=== PATIENT | female | born 1970 | race Caucasian/White ===

== ENCOUNTER 2017-08-06 02:46 | Emergency (ER) | payer BC ==
[~2017-08-06] VITALS: Ht 172.7 cm; Wt 72.6 kg
[~2017-08-06 02:46] MED LIST: PRILOSEC20 MG PO; TRIMOX500 MG PO; VICODIN 500 MG-1 TAB PO; VYVANSE70 MG PO
[2017-08-06 02:52] VITALS: BP 154/63
[2017-08-06] MEDS ORDERED: CYCLOBENZAPRINE10 MG PO (02:59)
[2017-08-06] MEDS ORDERED: NAPROSYN500 MG PO (02:59)
== END 2017-08-06 03:33 | disposition home or self-care (01) ==
LOC: ED 02:46
DX: M25.511 Pain in right shoulder (principal); F17.200 Nicotine dependence, unspecified, uncomplicated; Z79.899 Other long term (current) drug therapy

== ENCOUNTER 2018-01-06 23:36 | Emergency (ER) | payer BC ==
[~2018-01-06] VITALS: Ht 172.7 cm; Wt 81.6 kg
[~2018-01-06 23:36] MED LIST changes: +CYCLOBENZAPRINE10 MG PO; +NAPROSYN500 MG PO
[2018-01-07 00:09] LABS: BILIRUBIN NEGATIVE (NEGATIVE); BLOOD NEGATIVE (NEGATIVE); CLARITY CLEAR (CLEAR); COLOR YELLOW (YELLOW); GLUCOSE NEGATIVE (NEGATIVE); KETONE NEGATIVE (NEGATIVE); LEUKO ESTERASE NEGATIVE (NEGATIVE); NITRITE NEGATIVE (NEGATIVE); PH 5.5 (5.0-9.0); SPECIFIC GRAVITY <= 1.005 (1.005-1.030); UROBILINOGEN 0.2 E.U./dl (0.2-1.0)
[2018-01-07 00:21] LABS: WBC 0-2 wbc/hpf (0-5)
[2018-01-07] MEDS ORDERED: MIRALAX POWDER17 G1 PO (00:25)
[2018-01-07] MEDS ORDERED: REGLAN10 M1 PO (01:01)
[2018-01-07 01:41] VITALS: BP 130/70
== END 2018-01-07 01:52 | disposition home or self-care (01) ==
LOC: ED 23:36
PROVIDERS: Physician Assistant
DX: K59.00 Constipation, unspecified (principal); R11.0 Nausea; F17.200 Nicotine dependence, unspecified, uncomplicated; Z79.899 Other long term (current) drug therapy

== ENCOUNTER 2018-04-24 16:15 | Emergency (ER) | payer BC ==
[~2018-04-24] VITALS: Ht 172.7 cm; Wt 77.1 kg
[~2018-04-24 16:15] MED LIST changes: +MIRALAX POWDER17 G1 PO; +REGLAN10 M1 PO
[2018-04-24 16:17] VITALS: BP 127/51
[2018-04-24] MEDS ORDERED: ROBAXIN500 M1 PO (16:30)
[2018-04-24] MEDS ORDERED: PREDNISONE10 MG PO (16:30)
== END 2018-04-24 17:53 | disposition home or self-care (01) ==
LOC: ED 16:15
DX: M54.12 Radiculopathy, cervical region (principal); F17.200 Nicotine dependence, unspecified, uncomplicated; Z79.899 Other long term (current) drug therapy

== ENCOUNTER 2018-10-10 01:04 | Emergency (ER) | payer BC ==
[~2018-10-10] VITALS: Ht 172.7 cm; Wt 77.1 kg
[2018-10-10 01:04] VITALS: BP 104/33
[~2018-10-10 01:04] MED LIST changes: +PREDNISONE10 MG PO; +ROBAXIN500 M1 PO
== END 2018-10-10 03:01 | disposition home or self-care (01) ==
LOC: ED 01:04
DX: S90.32XA Contusion of left foot, initial encounter (principal); Z79.899 Other long term (current) drug therapy; W22.8XXA Striking against or struck by other objects, initial encounter; Y93.89 Activity, other specified; Y92.89 Other specified places as the place of occurrence of the external cause; Y99.8 Other external cause status

== ENCOUNTER 2019-03-02 11:28 | Emergency (ER) | payer BC ==
[~2019-03-02] VITALS: Ht 172.7 cm; Wt 72.6 kg
[2019-03-02 12:56] VITALS: BP 95/58
== END 2019-03-02 14:03 | disposition home or self-care (01) ==
LOC: ED 11:28
DX: S63.501A Unspecified sprain of right wrist, initial encounter (principal); Z79.899 Other long term (current) drug therapy; W22.8XXA Striking against or struck by other objects, initial encounter; X50.0XXA Overexertion from strenuous movement or load, initial encounter; Y93.89 Activity, other specified; Y92.89 Other specified places as the place of occurrence of the external cause; Y99.8 Other external cause status

== ENCOUNTER → 2020-01-26 | Outpatient (CLI) | payer BC | END | disposition home or self-care (01) | LOC: US 08:30 | DX: N93.9 Abnormal uterine and vaginal bleeding, unspecified (principal) ==

== ENCOUNTER 2022-09-16 16:12 | Emergency (ER) | payer BC ==
[~2022-09-16] VITALS: Ht 172.7 cm; Wt 93.9 kg
[2022-09-16 16:40] VITALS: BP 175/89
[2022-09-17] MEDS ORDERED: METRONIDAZOLE500 M1 PO (15:50)
[2022-09-17] MEDS ORDERED: REGLAN10 M1 PO (15:50)
[2022-09-17] MEDS ORDERED: CIPRO500 MG PO (15:50)
== END 2022-09-16 20:02 | disposition left against medical advice (07) ==
LOC: ED 16:12
DX: Z53.21 Procedure and treatment not carried out due to patient leaving prior to being seen by health care provider (principal)

== ENCOUNTER 2022-09-17 08:39 | Emergency (ER) | payer BC ==
[~2022-09-17] VITALS: Ht 172.7 cm; Wt 93.9 kg
[2022-09-17 09:56] VITALS: BP 121/73
[2022-09-17 11:33] LABS: BASO # 0.1 10*3/uL (0.0-0.1); BASO % 0.6 % (0.0-1.0); EOS # 0.1 10*3/uL (0.0-0.4); HEMATOCRIT 33.1 % (37.0-47.0); LYMPH # 1.2 10*3/uL (1.3-4.4); LYMPH % 11.8 % (27.0-41.0); MEAN CELL VOLUME 82.8 fl (81.0-99.0); MEAN CORPUSCULAR HGB 26.3 pg (27.0-31.0); MEAN CORPUSCULAR HGB CONC 31.7 g/dl (33.0-37.0); MEAN PLATELET VOLUME 10.7 fl (9.6-12.3); NEUT # 7.6 10*3/uL (2.3-7.9); NEUT % 75.9 % (47.0-73.0); PLATELET COUNT AUTOMATED 247 10*3/uL (130-400); RED CELL DISTRI WIDTH 18.3 % (0-14.5); WHITE BLOOD COUNT 10.1 10*3/uL (4.8-10.8)
[2022-09-17 11:54] LABS: ALKALINE PHOSPHATASE 154 U/L (46-116); BUN 18 mg/dl (9-23); CHLORIDE 98 mmol/L (98-107); CREATININE 1.15 mg/dL (0.55-1.02); LIPASE 39 U/L (12-53); POTASSIUM 3.1 mmol/L (3.4-5.1); SGPT/ALT 31 U/L (10-49); TOTAL PROTEIN 7.8 gm/dL (6.0-8.0)
[2022-09-17 15:16] LABS: BILIRUBIN Negative (Negative); BLOOD Trace-Lysed (Negative); CLARITY Cloudy (Clear); COLOR Yellow (Yellow); GLUCOSE Negative (Negative); KETONE 1+ (Negative); LEUKO ESTERASE 1+ (Negative); NITRITE Negative (Negative); UROBILINOGEN 0.2 E.U./dl (0.0-1.0)
[2022-09-17 15:42] LABS: BACTERIA TRACE; EPITHELIAL CELLS 21-30
[2022-09-17] MEDS ORDERED: METRONIDAZOLE500 M1 PO (15:50)
[2022-09-17] MEDS ORDERED: REGLAN10 M1 PO (15:50)
[2022-09-17] MEDS ORDERED: CIPRO500 MG PO (15:50)
== END 2022-09-17 16:10 | disposition home or self-care (01) ==
LOC: ED 08:39
PROVIDERS: Physician Assistant
DX: K52.9 Noninfective gastroenteritis and colitis, unspecified (principal); N12 Tubulo-interstitial nephritis, not specified as acute or chronic

== ENCOUNTER → 2022-11-24 | Outpatient (CLI) | payer BC ==
[~2022-11-24] MED LIST changes: +CIPRO500 MG PO; +METRONIDAZOLE500 M1 PO
[2022-11-24 13:58] LABS: BASO # 0.1 10*3/uL (0.0-0.1); BASO % 1.6 % (0.0-1.0); EOS # 0.2 10*3/uL (0.0-0.4); EOS % 2.5 % (1.0-4.0); HEMATOCRIT 37.6 % (37.0-47.0); LYMPH # 1.8 10*3/uL (1.3-4.4); LYMPH % 24.5 % (27.0-41.0); MEAN CELL VOLUME 88.9 fl (81.0-99.0); MEAN CORPUSCULAR HGB 28.1 pg (27.0-31.0); MEAN CORPUSCULAR HGB CONC 31.6 g/dl (33.0-37.0); MEAN PLATELET VOLUME 11.3 fl (9.6-12.3); MONO # 0.5 10*3/uL (0.1-1.0); MONO % 6.3 % (3.0-9.0); NEUT # 4.8 10*3/uL (2.3-7.9); NEUT % 64.3 % (47.0-73.0); PLATELET COUNT AUTOMATED 312 10*3/uL (130-400); RED BLOOD COUNT 4.23 10*6/uL (4.10-5.10); RED CELL DISTRI WIDTH 17.5 % (0-14.5); WHITE BLOOD COUNT 7.5 10*3/uL (4.8-10.8)
[2022-11-24 14:10] LABS: POTASSIUM 3.2 mmol/L (3.4-5.1)
== END | disposition home or self-care (01) ==
LOC: LAB 13:06
PROVIDERS: ATTEND Nurse Practitioner Family
DX: K26.3 Acute duodenal ulcer without hemorrhage or perforation (principal)

== ENCOUNTER 2022-12-01 14:57 | Emergency (ER) | payer BC ==
[~2022-12-01] VITALS: Wt 91.3 kg
[2022-12-01 15:03] VITALS: BP 148/80
[2022-12-01 15:45] LABS: BASO # 0.1 10*3/uL (0.0-0.1); BASO % 1.2 % (0.0-1.0); EOS # 0.2 10*3/uL (0.0-0.4); EOS % 2.6 % (1.0-4.0); HEMATOCRIT 38.2 % (37.0-47.0); LYMPH % 23.3 % (27.0-41.0); MEAN CELL VOLUME 89.3 fl (81.0-99.0); MEAN CORPUSCULAR HGB 28.3 pg (27.0-31.0); MEAN CORPUSCULAR HGB CONC 31.7 g/dl (33.0-37.0); MEAN PLATELET VOLUME 10.9 fl (9.6-12.3); MONO # 0.6 10*3/uL (0.1-1.0); MONO % 6.5 % (3.0-9.0); NEUT # 5.6 10*3/uL (2.3-7.9); PLATELET COUNT AUTOMATED 298 10*3/uL (130-400); RED BLOOD COUNT 4.28 10*6/uL (4.10-5.10); RED CELL DISTRI WIDTH 17.6 % (0-14.5); WHITE BLOOD COUNT 8.5 10*3/uL (4.8-10.8)
[2022-12-01 16:10] LABS: ALKALINE PHOSPHATASE 114 U/L (46-116); BUN 15 mg/dl (9-23); CHLORIDE 107 mmol/L (98-107); POTASSIUM 3.6 mmol/L (3.4-5.1); SGPT/ALT 15 U/L (10-49); TOTAL PROTEIN 7.6 gm/dL (6.0-8.0)
== END 2022-12-01 18:00 | disposition home or self-care (01) ==
LOC: ED 14:57
PROVIDERS: Emergency Medicine
DX: R07.9 Chest pain, unspecified (principal); Z79.899 Other long term (current) drug therapy

== ENCOUNTER 2023-04-28 03:15 | Emergency (ER) | payer SELFPAY ==
[~2023-04-28] VITALS: Ht 172.7 cm; Wt 81.6 kg
[2023-04-28 03:25] VITALS: BP 132/63
[2023-04-28] MEDS ORDERED: Carafate1 GM PO (04:06)
[2023-04-28] MEDS ORDERED: PROCHLORPERAZINE5 M2 PO (04:06)
[2023-04-28] MEDS ORDERED: DULOXETINE HCL30 MG PO (04:06)
[2023-04-28] MEDS ORDERED: MELOXICAM15 MG PO (04:18)
== END 2023-04-28 04:45 | disposition home or self-care (01) ==
LOC: ED 03:15
DX: S90.31XA Contusion of right foot, initial encounter (principal); F90.9 Attention-deficit hyperactivity disorder, unspecified type; Z90.710 Acquired absence of both cervix and uterus; W20.8XXA Other cause of strike by thrown, projected or falling object, initial encounter; Y93.89 Activity, other specified; Y92.89 Other specified places as the place of occurrence of the external cause; Y99.8 Other external cause status

== ENCOUNTER 2023-08-15 07:12 | Emergency (ER) | payer SELFPAY ==
[~2023-08-15] VITALS: Ht 172.7 cm; Wt 82.1 kg
[~2023-08-15 07:12] MED LIST changes: +Carafate1 GM PO; +DULOXETINE HCL30 MG PO; +MELOXICAM15 MG PO; +PROCHLORPERAZINE5 M2 PO
[2023-08-15 07:29] VITALS: BP 145/86
[2023-08-15 07:54] LABS: BILIRUBIN 1+ (Negative); BLOOD Negative (Negative); CLARITY Clear (Clear); COLOR Orange (Yellow); GLUCOSE Negative (Negative); KETONE Negative (Negative); NITRITE Positive (Negative); PH 5.5 (4.5-8.0); SPECIFIC GRAVITY 1.025 (1.001-1.030)
[2023-08-15 08:03] LABS: LEUKO ESTERASE 1+ (Negative)
[2023-08-15 08:08] LABS: BACTERIA 1+; MUCOUS 1+
[2023-08-15] MEDS ORDERED: OMNICEF300 MG PO (08:17)
== END 2023-08-15 08:36 | disposition home or self-care (01) ==
LOC: ED 07:12
PROVIDERS: Student in an Organized Health Care Education/Training Program
DX: N39.0 Urinary tract infection, site not specified (principal); J32.9 Chronic sinusitis, unspecified; F90.9 Attention-deficit hyperactivity disorder, unspecified type; Z90.710 Acquired absence of both cervix and uterus

== ENCOUNTER → 2023-10-23 | Outpatient (CLI) | payer SELFPAY ==
[~2023-10-23] MED LIST changes: +LEVOTHYROXINE100 MC1 PO; +OMNICEF300 MG PO
== END | disposition home or self-care (01) ==
LOC: US 10:00
PROVIDERS: ATTEND Physician Assistant
DX: R10.13 Epigastric pain (principal)

== ENCOUNTER 2023-10-24 01:45 | Emergency (ER) | payer OTHER ==
[~2023-10-24] VITALS: Ht 172.7 cm; Wt 82.1 kg
[~2023-10-24 01:45] MED LIST changes: -LEVOTHYROXINE100 MC1 PO
[2023-10-24 01:57] VITALS: BP 143/88
[2023-10-24] MEDS ORDERED: Carafate1 GM PO (02:01)
[2023-10-24] MEDS ORDERED: LEVOTHYROXINE100 MC1 PO (02:01)
== END 2023-10-24 04:02 | disposition home or self-care (01) ==
LOC: ED 01:45
DX: S67.192A Crushing injury of right middle finger, initial encounter (principal); D64.9 Anemia, unspecified; F90.9 Attention-deficit hyperactivity disorder, unspecified type; Z90.710 Acquired absence of both cervix and uterus; W23.0XXA Caught, crushed, jammed, or pinched between moving objects, initial encounter; Y93.89 Activity, other specified; Y92.89 Other specified places as the place of occurrence of the external cause; Y99.0 Civilian activity done for income or pay

== ENCOUNTER 2023-11-14 00:28 | Emergency (ER) | payer SELFPAY ==
[~2023-11-14] VITALS: Ht 172.7 cm; Wt 79.8 kg
[~2023-11-14 00:28] MED LIST changes: +LEVOTHYROXINE100 MC1 PO
[2023-11-14 00:41] VITALS: BP 139/81
[2023-11-14] MEDS ORDERED: ASPIRIN ADULT L81 M2 PO (00:48)
[2023-11-14 00:57] LABS: BASO # 0.1 10*3/uL (0.0-0.1); BASO % 0.9 % (0.0-1.0); EOS # 0.2 10*3/uL (0.0-0.4); EOS % 2.1 % (1.0-4.0); HEMATOCRIT 32.1 % (37.0-47.0); LYMPH # 1.9 10*3/uL (1.3-4.4); LYMPH % 21.4 % (27.0-41.0); MEAN CELL VOLUME 95.5 fl (81.0-99.0); MEAN CORPUSCULAR HGB 30.7 pg (27.0-31.0); MEAN CORPUSCULAR HGB CONC 32.1 g/dl (33.0-37.0); MEAN PLATELET VOLUME 10.3 fl (9.6-12.3); MONO # 0.7 10*3/uL (0.1-1.0); MONO % 7.4 % (3.0-9.0); NEUT # 6.1 10*3/uL (2.3-7.9); NEUT % 67.5 % (47.0-73.0); PLATELET COUNT AUTOMATED 229 10*3/uL (130-400); RED BLOOD COUNT 3.36 10*6/uL (4.10-5.10); RED CELL DISTRI WIDTH 14.7 % (0-14.5)
[2023-11-14 01:16] LABS: POTASSIUM 3.2 mmol/L (3.4-5.1)
[2023-11-14] MEDS ORDERED: POTASSIUM CHLORIDE 20 MEQ TAB PO ONE (01:35)
[2023-11-14] MEDS ORDERED: GABAPENTIN 100 MG CAP PO ONE (01:35)
== END 2023-11-14 01:47 | disposition home or self-care (01) ==
LOC: ED 00:28
PROVIDERS: Internal Medicine
DX: G62.9 Polyneuropathy, unspecified (principal); F90.9 Attention-deficit hyperactivity disorder, unspecified type; Z87.891 Personal history of nicotine dependence; Z90.710 Acquired absence of both cervix and uterus

== ENCOUNTER 2024-02-01 13:12 | Emergency (ER) | payer SELFPAY ==
[~2024-02-01] VITALS: Ht 170.1 cm; Wt 83.9 kg
[~2024-02-01 13:12] MED LIST changes: +ASPIRIN ADULT L81 M2 PO
[2024-02-01 13:30] VITALS: BP 124/76
[2024-02-01 13:36] LABS: BASO # 0.1 10*3/uL (0.0-0.1); BASO % 1.8 % (0.0-1.0); EOS # 0.3 10*3/uL (0.0-0.4); EOS % 4.1 % (1.0-4.0); HEMATOCRIT 32.2 % (37.0-47.0); LYMPH # 1.4 10*3/uL (1.3-4.4); LYMPH % 23.5 % (27.0-41.0); MEAN CELL VOLUME 97.6 fl (81.0-99.0); MEAN CORPUSCULAR HGB 31.2 pg (27.0-31.0); MEAN PLATELET VOLUME 10.1 fl (9.6-12.3); MONO # 0.4 10*3/uL (0.1-1.0); MONO % 6.8 % (3.0-9.0); NEUT # 3.8 10*3/uL (2.3-7.9); NEUT % 63.3 % (47.0-73.0); PLATELET COUNT AUTOMATED 251 10*3/uL (130-400); RED CELL DISTRI WIDTH 15.2 % (0-14.5)
[2024-02-01] MEDS ORDERED: ACETAMINOPHEN 325 MG TAB PO ONE (13:40)
[2024-02-01 15:00] LABS: POTASSIUM 3.6 mmol/L (3.4-5.1); TOTAL PROTEIN 7.4 gm/dL (6.0-8.0)
== END 2024-02-01 15:55 | disposition home or self-care (01) ==
LOC: ED 13:12
PROVIDERS: Physician Assistant Medical
DX: S90.32XA Contusion of left foot, initial encounter (principal); R07.89 Other chest pain; F90.9 Attention-deficit hyperactivity disorder, unspecified type; F17.200 Nicotine dependence, unspecified, uncomplicated; Z90.710 Acquired absence of both cervix and uterus; X58.XXXA Exposure to other specified factors, initial encounter; Y93.89 Activity, other specified; Y92.009 Unspecified place in unspecified non-institutional (private) residence as the place of occurrence of the external cause; Y99.8 Other external cause status

== ENCOUNTER → 2025-02-03 | Outpatient (CLI) | payer BC ==
[2025-02-03 16:43] LABS: HEMATOCRIT 36.6 % (37.0-47.0); MEAN CELL VOLUME 96.8 fl (81.0-99.0); MEAN PLATELET VOLUME 10.4 fl (9.6-12.3); RED BLOOD COUNT 3.78 10*6/uL (4.10-5.10); RED CELL DISTRI WIDTH 14.3 % (0-14.5); WHITE BLOOD COUNT 6.9 10*3/uL (4.8-10.8)
[2025-02-03 17:20] LABS: FREE T4 0.53 ng/dl (0.89-1.76); POTASSIUM 4.1 mmol/L (3.4-5.1)
[2025-02-03 17:21] LABS: VITAMIN D, 25-HYDROXY 10.8 ng/mL (30-100)
== END | disposition home or self-care (01) ==
LOC: LAB 16:23
PROVIDERS: ATTEND Family Medicine
DX: E78.00 Pure hypercholesterolemia, unspecified (principal); E55.9 Vitamin D deficiency, unspecified; R53.83 Other fatigue

== ENCOUNTER → 2025-06-01 | Outpatient (CLI) | payer BC | END | disposition home or self-care (01) | LOC: RAD 17:28 | PROVIDERS: ATTEND Family Medicine | DX: M47.817 Spondylosis without myelopathy or radiculopathy, lumbosacral region (principal); M48.07 Spinal stenosis, lumbosacral region; M54.50 Low back pain, unspecified ==